=== PATIENT | female | born 1995 | race African-American/Black ===

== ENCOUNTER 2021-03-30 19:20 | Emergency (ER) | payer OTHER ==
[~2021-03-30] VITALS: Ht 160 cm; Wt 93.6 kg
[2021-03-30] MEDS ORDERED: PANT40TA29 PO (20:05)
[2021-03-30] MEDS ORDERED: ZOLP5TAB PO (20:05)
[2021-03-30] MEDS ORDERED: SUMA50TA2 PO (20:05)
[2021-03-30] MEDS ORDERED: VENL75CA47 PO (20:05)
[2021-03-30] MEDS ORDERED: ZOFR4TAB16 PO (20:05)
--- NOTE | 2021-03-31 02:51 | REPVR ---
PROCEDURE INFORMATION: Exam: XR Left Ribs with PA Chest Exam date and time: 03/31/2021 1:17 AM Age: 25 years old Clinical indication: Chest wall pain; Left; Additional info: Left sided rib pain TECHNIQUE: Imaging protocol: XR Left ribs with PA chest. Views: 3 views COMPARISON: No relevant prior studies available. FINDINGS: Lungs: There is decreased inflation of the lungs. No focal infiltrates. Pleural spaces: Unremarkable. No pleural effusion. No pneumothorax. Heart/Mediastinum: Unremarkable. No cardiomegaly. Bones/joints: Unremarkable. No left rib fractures. IMPRESSION: 1. Negative left ribs. No fractures. 2. Negative poor inspiratory chest. Electronically signed by: Jamie Chandra On 03/31/2021 02:50:44 AM
[2021-03-31] MEDS ORDERED: KETOROLAC 60MG 2ML VIAL IM ONE (03:15)
[2021-03-31] MEDS ORDERED: NAPR-837 PO (03:16)
[2021-03-31 03:40] VITALS: BP 119/66
== END 2021-03-31 03:54 | disposition home or self-care (01) ==
LOC: M ED 19:20
DX: S20.212A Contusion of left front wall of thorax, initial encounter (principal); W01.0XXA Fall on same level from slipping, tripping and stumbling without subsequent striking against object, initial encounter; Y92.9 Unspecified place or not applicable; Y93.9 Activity, unspecified; Y99.1 Military activity; Z79.899 Other long term (current) drug therapy
CPT/HCPCS: 71101; 99283; J1885

== ENCOUNTER 2021-05-08 11:15 | Day surgery (SDC) | payer OTHER ==
[~2021-05-08] VITALS: Ht 160 cm; Wt 96.2 kg
[~2021-05-08 11:15] MED LIST: D31000TA2 PO; HYDR-4570 PO; LIDOCAINE 2% 100MG/5ML SDV (FOR ANES.) As Ordered ONE; NAPR-837 PO; NS 1,000 ML IV ONE; PANT40TA29 PO; SUMA50TA2 PO; VENL75CA47 PO; VITMTA PO; ZOFR4TAB16 PO; ZOLP5TAB PO; propofoL 200 MG/20 ML VIAL As Ordered ONE
[2021-05-08] MEDS ORDERED: LIDOCAINE 2% 100MG/5ML SDV (FOR ANES.) As Ordered ONE (12:18)
[2021-05-08] MEDS ORDERED: propofoL 200 MG/20 ML VIAL As Ordered ONE (12:49)
[2021-05-08] MEDS ORDERED: ONDANSETRON 4MG/2ML VIAL As Ordered ONE (12:50)
--- NOTE | 2021-05-08 12:59 | ROOR ---
Patient Name: Margarita Fair Procedure Date: 05/08/2021 12:23 PM Date of : 1995 Age: 25 Room: [facility] Gender: Female Note Status: Finalized Procedure: Upper GI endoscopy Indications: Heartburn, Vomiting, Regurgitation Providers: Danilo Mcfarland MD Referring MD: YAMILETH CARSON MD Requesting Provider: Medicines: Monitored Anesthesia Care Complications: No immediate complications. Procedure: Pre-Anesthesia Assessment: - The heart rate, respiratory rate, oxygen saturations, blood pressure, adequacy of pulmonary ventilation, and response to care were monitored throughout the procedure. The Endoscope was introduced through the mouth, and advanced to the second part of duodenum. The upper GI endoscopy was accomplished without difficulty. The patient tolerated the procedure well. Findings: The esophagus was normal. The stomach was normal. The examined duodenum was normal. Biopsies were taken with a cold forceps in the gastric antrum for Helicobacter pylori testing. Impression: - Normal esophagus. - Normal stomach. - Normal examined duodenum. - Biopsies were taken with a cold forceps for Helicobacter pylori testing. Recommendation: - Observe patient's clinical course. - Continue present medications. - Await pathology results. - Telephone endoscopist for pathology results in 2 weeks. Procedure Code(s): --- Professional --- 00652, Esophagogastroduodenoscopy, flexible, transoral; with biopsy, single or multiple Diagnosis Code(s): --- Professional --- R11.10, Vomiting, unspecified R12, Heartburn CPT copyright 2019 [employer]. All rights reserved. The codes documented in this report are preliminary and upon bacon stringer review may be revised to meet current compliance requirements. Danilo Mcfarland MD Danilo Mcfarland MD 05/08/2021 12:58:44 PM Electronically signed by Danilo Mcfarland MD Number of Addenda: 0 Note Initiated On: 05/08/2021 12:23 PM Estimated Blood Loss: Estimated blood loss: none.
[2021-05-08 13:21] VITALS: BP 104/72
== END 2021-05-08 13:23 | disposition home or self-care (01) ==
LOC: M OPP 11:15
PROVIDERS: ATTEND Internal Medicine Gastroenterology
DX: R12 Heartburn (principal); Z79.899 Other long term (current) drug therapy
CPT/HCPCS: 43239; 88305; J2405

== ENCOUNTER 2021-05-14 09:10 | Emergency (ER) | payer OTHER ==
[~2021-05-14] VITALS: Ht 165.1 cm; Wt 94.9 kg
[~2021-05-14 09:10] MED LIST changes: -LIDOCAINE 2% 100MG/5ML SDV (FOR ANES.) As Ordered ONE; -NS 1,000 ML IV ONE; -propofoL 200 MG/20 ML VIAL As Ordered ONE
[2021-05-14 09:55] LABS: BASO # 0.1 10^3/uL (0.0-0.2); EOS % 0.8 % (0.0-3.0); HEMATOCRIT 38.6 % (36.0-47.0); HEMOGLOBIN 12.9 g/dl (12.0-15.5); LYMPH # 2.1 10^3/uL (1.5-5.0); LYMPH % 39.9 % (24.0-44.0); MEAN CORPUSCULAR HEMOGLOBIN 28.3 pg (27.0-33.0); MEAN CORPUSCULAR HGB CONC 33.4 g/dl (32.0-36.5); MEAN CORPUSCULAR VOLUME 84.6 fl (80.0-96.0); MONO # 0.6 10^3/uL (0.0-0.8); MONO % 11.3 % (2.0-8.0); NEUTROPHILS # 2.5 10^3/uL (1.5-8.5); NEUTROPHILS % 46.8 % (36.0-66.0); PLATELET COUNT, AUTOMATED 339 10^3/uL (150-450); RED BLOOD COUNT 4.56 10^6/uL (4.00-5.40); WHITE BLOOD COUNT 5.2 10^3/uL (4.0-10.0)
[2021-05-14 10:23] LABS: ALBUMIN 3.8 GM/DL (3.2-5.2); ALT/SGPT 21 U/L (12-78); BILIRUBIN,DIRECT 0.1 MG/DL (0.0-0.2); BILIRUBIN,TOTAL 0.7 MG/DL (0.2-1.0); BLOOD UREA NITROGEN 10 MG/DL (7-18); CALCIUM LEVEL 9.5 MG/DL (8.5-10.1); CARBON DIOXIDE LEVEL 29 MEQ/L (21-32); CHLORIDE LEVEL 108 MEQ/L (98-107); CK-MB VALUE MASS < 1.0 NG/ML (<3.6); CPK CREATINE PHOSPHOKINASE 256 U/L (26-192); CREATININE FOR GFR 0.86 MG/DL (0.55-1.30); FREE T4 0.86 NG/DL (0.76-1.46); GLOMERULAR FILTRATION RATE > 60.0 (>60); GLUCOSE, FASTING 86 MG/DL (70-100); LIPASE 78 U/L (73-393); MB/CK RELATIVE INDEX 0.39 (< OR =4); POTASSIUM SERUM 4.6 MEQ/L (3.5-5.1); SODIUM LEVEL 141 MEQ/L (136-145); TOTAL PROTEIN 7.4 GM/DL (6.4-8.2); TROPONIN I < 0.02 NG/ML (< 0.10)
[2021-05-14 10:27] LABS: HCG, SERUM QUALITATIVE NEGATIVE (NEGATIVE)
[2021-05-14] MEDS ORDERED: NS 1,000 ML IV ONE (11:20)
[2021-05-14] MEDS ORDERED: ACETAMINOPHEN TAB 650MG DOSE (2X325MG) PO ONE (11:20)
[2021-05-14 13:27] VITALS: BP 140/73
== END 2021-05-14 13:50 | disposition home or self-care (01) ==
LOC: M ED 09:10
DX: S60.222A Contusion of left hand, initial encounter (principal); R55 Syncope and collapse; W01.0XXA Fall on same level from slipping, tripping and stumbling without subsequent striking against object, initial encounter; Y92.9 Unspecified place or not applicable; Y93.9 Activity, unspecified; Y99.9 Unspecified external cause status; R94.31 Abnormal electrocardiogram [ECG] [EKG]; G43.909 Migraine, unspecified, not intractable, without status migrainosus; K21.9 Gastro-esophageal reflux disease without esophagitis; F41.9 Anxiety disorder, unspecified; F33.9 Major depressive disorder, recurrent, unspecified; Z79.899 Other long term (current) drug therapy

== ENCOUNTER 2021-07-09 21:18 | Emergency (ER) | payer OTHER ==
[~2021-07-09] VITALS: Ht 162.6 cm; Wt 96.1 kg
[2021-07-09] MEDS ORDERED: ZONI25CA13 PO (21:36)
[2021-07-10] MEDS ORDERED: NS 1,000 ML IV ONE (02:40)
[2021-07-10] MEDS ORDERED: METOCLOPRAMIDE INJ 10MG/2ML VIAL (J2765 PER 1) IV ONE (02:40)
[2021-07-10] MEDS ORDERED: KETOROLAC 30 MG/ML 1ML VIAL IV ONE (02:40)
[2021-07-10] MEDS ORDERED: diphenhydrAMINE 50MG/ML VIAL (J1200) IV ONE (02:40)
[2021-07-10] MEDS ORDERED: ACETAMINOPHEN 500 MG TAB PO ONE (02:40)
[2021-07-10] MEDS ORDERED: dexameTHASONE 4 MG/ML 1ML VIAL (J1100 PER 1MG) IV ONE (05:30)
[2021-07-10] MEDS ORDERED: PROMETHAZINE INJ 25 MG/ML VIAL (J2550) IV ONE (05:30)
[2021-07-10 08:12] VITALS: BP 115/68
== END 2021-07-10 08:19 | disposition home or self-care (01) ==
LOC: M ED 21:18
DX: G43.909 Migraine, unspecified, not intractable, without status migrainosus (principal); K21.9 Gastro-esophageal reflux disease without esophagitis; F32.9 Major depressive disorder, single episode, unspecified; F41.9 Anxiety disorder, unspecified; Z79.899 Other long term (current) drug therapy
CPT/HCPCS: 36415; 80047; 84702; 96361; 96374; 96375; 99284; J1100; J1200; J1885; J2765